=== PATIENT | male | born 1935 | race Caucasian/White ===

== ENCOUNTER 2022-01-03 09:54 | Inpatient (IN) ==
[2022-01-03 10:44] LABS: ABS Eosinophils 0.2 10^3/ul (0-0.6); ABS Lymphocytes 0.7 10^3/ul (1.0-4.8); ABS Monocytes 1.1 10^3/ul (0-0.8); ABS Neutrophils 7.5 10^3/ul (1.5-7.7); Eosinophil % 1.8 %; Hematocrit 32 % (42-52); Hemoglobin 10.8 g/dL (14.0-18.0); Lymphocyte % 7.2 %; Mean Corpuscular HGB Conc 34 g/dL (31-36); Mean Corpuscular Hemoglobin 32 pg (27-31); Mean Corpuscular Volume 95 fL (80-94); Mean Platelet Volume 7.7 fL (7.4-10.4); Platelet Count 366 10^3/uL (150-450); Red Blood Count 3.37 10^6 /uL (4.18-5.48); Red Cell Distribution Width 15 % (10-15); White Blood Count 9.5 10^3/uL (3.5-10.8)
[2022-01-03 10:48] LABS: INR 1.05 (0.89-1.11)
[2022-01-03 11:28] LABS: Albumin 3.6 g/dL (3.2-5.2); Albumin/Globulin Ratio 0.9 (1-3); Calcium 12.1 mg/dL (8.6-10.3); Globulin 3.8 g/dL (2-4); Potassium 4.8 mmol/L (3.5-5.0); Total Bilirubin 2.1 mg/dL (0.2-1.0); Total Protein 7.4 g/dL (6.4-8.9); eGFR CKD-EPI 31.5 (>60)
[2022-01-03 12:09] LABS: High Sensitivity Troponin 1 Hr 20 pg/mL (<20)
[2022-01-03] MEDS ORDERED: Iodixanol (CONTRAST) 320 MG/ML 100 ML SDV IV ONE (12:11)
[2022-01-03] MEDS ORDERED: Enoxaparin 40 MG/0.4 ML SYR SUBCUT SCH (16:00)
[2022-01-03 17:11] LABS: PSA Screening Total 0.844 ng/mL (0-4.000)
[2022-01-03 17:48] LABS: Vitamin D Total 25(OH) 106.7 ng/mL (20-50)
[2022-01-03] MEDS: NS 0.9% 1000 ml BAG 1,000 ML IV SCH (19:36)
[2022-01-03 19:45] LABS: ABS Eosinophils 0.2 10^3/ul (0-0.6); ABS Lymphocytes 0.6 10^3/ul (1.0-4.8); ABS Monocytes 1.3 10^3/ul (0-0.8); ABS Neutrophils 7.8 10^3/ul (1.5-7.7); Eosinophil % 1.9 %; Hematocrit 30 % (42-52); Lymphocyte % 5.9 %; Mean Corpuscular HGB Conc 33 g/dL (31-36); Mean Corpuscular Hemoglobin 32 pg (27-31); Mean Corpuscular Volume 95 fL (80-94); Mean Platelet Volume 7.7 fL (7.4-10.4); Platelet Count 338 10^3/uL (150-450); Red Blood Count 3.18 10^6 /uL (4.18-5.48); Red Cell Distribution Width 15 % (10-15); White Blood Count 9.8 10^3/uL (3.5-10.8)
[2022-01-03 19:56] LABS: Activated Partial Thrombo Time 34.6 seconds (26.0-38.0); INR 0.99 (0.89-1.11)
[2022-01-03 20:17] LABS: eGFR CKD-EPI 36.2 (>60)
[2022-01-03] MEDS: Heparin 5000 UNITS/ML 1 mL VIAL SUBCUT SCH (22:42)
[2022-01-04] MEDS: guaiFENesin/CODIENE 100mg/10mg 5 ML UDC PO PRN ×2 (04:40→10:26)
[2022-01-04] MEDS: Heparin 5000 UNITS/ML 1 mL VIAL SUBCUT SCH ×3 (05:30→23:04)
[2022-01-04 05:36] LABS: ABS Eosinophils 0.1 10^3/ul (0-0.6); ABS Lymphocytes 0.6 10^3/ul (1.0-4.8); ABS Monocytes 1.2 10^3/ul (0-0.8); ABS Neutrophils 7.2 10^3/ul (1.5-7.7); Eosinophil % 1.3 %; Hematocrit 31 % (42-52); Hemoglobin 10.4 g/dL (14.0-18.0); Lymphocyte % 6.5 %; Mean Corpuscular HGB Conc 33 g/dL (31-36); Mean Corpuscular Hemoglobin 32 pg (27-31); Mean Corpuscular Volume 95 fL (80-94); Mean Platelet Volume 7.8 fL (7.4-10.4); Platelet Count 347 10^3/uL (150-450); Red Blood Count 3.26 10^6 /uL (4.18-5.48); Red Cell Distribution Width 15 % (10-15); White Blood Count 9.1 10^3/uL (3.5-10.8)
[2022-01-04 05:44] LABS: Activated Partial Thrombo Time 37.1 seconds (26.0-38.0); INR 1.03 (0.89-1.11)
[2022-01-04 06:15] LABS: Albumin 3.4 g/dL (3.2-5.2); Albumin/Globulin Ratio 0.9 (1-3); Calcium 11.8 mg/dL (8.6-10.3); Globulin 3.7 g/dL (2-4); Total Bilirubin 2.4 mg/dL (0.2-1.0); Total Protein 7.1 g/dL (6.4-8.9); eGFR CKD-EPI 34.6 (>60)
[2022-01-04] MEDS: NS 0.9% 1000 ml BAG 1,000 ML IV SCH ×2 (10:28→21:46)
[2022-01-04 20:11] LABS: Direct Bilirubin 1.3 mg/dL (0.03-0.18); Total Bilirubin 2.3 mg/dL (0.2-1.0)
[2022-01-05] MEDS ORDERED: Furosemide 40 mg/4 ml IV VIAL IV ONE (00:58)
[2022-01-05 03:02] LABS: Urine Appearance Cloudy; Urine Bilirubin Negative (Negative); Urine Blood Negative (Negative); Urine Color Amber; Urine Glucose Negative (Negative); Urine Ketones Negative (Negative); Urine Nitrite Negative (Negative); Urine Protein Negative (Negative); Urine Urobilinogen Negative (Negative)
[2022-01-05] MEDS: Heparin 5000 UNITS/ML 1 mL VIAL SUBCUT SCH ×2 (05:27→15:34)
[2022-01-05] MEDS: guaiFENesin/CODIENE 100mg/10mg 5 ML UDC PO PRN (05:49)
[2022-01-05 06:07] LABS: ABS Lymphocytes 0.5 10^3/ul (1.0-4.8); ABS Monocytes 1.3 10^3/ul (0-0.8); ABS Neutrophils 7.6 10^3/ul (1.5-7.7); Eosinophil % 0.4 %; Hematocrit 31 % (42-52); Hemoglobin 10.1 g/dL (14.0-18.0); Lymphocyte % 5.3 %; Mean Corpuscular HGB Conc 33 g/dL (31-36); Mean Corpuscular Hemoglobin 32 pg (27-31); Mean Corpuscular Volume 96 fL (80-94); Mean Platelet Volume 7.9 fL (7.4-10.4); Platelet Count 342 10^3/uL (150-450); Red Blood Count 3.19 10^6 /uL (4.18-5.48); Red Cell Distribution Width 15 % (10-15); White Blood Count 9.5 10^3/uL (3.5-10.8)
[2022-01-05 06:23] LABS: Albumin 3.3 g/dL (3.2-5.2); Albumin/Globulin Ratio 0.9 (1-3); Calcium 11.5 mg/dL (8.6-10.3); Globulin 3.6 g/dL (2-4); Total Bilirubin 2.5 mg/dL (0.2-1.0); Total Protein 6.9 g/dL (6.4-8.9); eGFR CKD-EPI 32.1 (>60)
[2022-01-05 06:28] LABS: Potassium 5.4 mmol/L (3.5-5.0)
[2022-01-05] MEDS ORDERED: Iodixanol (CONTRAST) 320 MG/ML 100 ML SDV IV ONE (09:53)
[2022-01-05] MEDS ORDERED: SODIUM ZIRCONIUM CYCLOSILICATE 10 GM PACKET PO ONE (10:00)
[2022-01-05] MEDS ORDERED: Zoledronic Acid 3 MG in NS 0.9% 100 ml BAG 100 ML IVPB ONE (11:00)
[2022-01-05 11:26] LABS: PCO2 Arterial 34 mmHg (35-45); PO2 Arterial 72 mmHg (80-100)
[2022-01-05 11:40] VITALS: BP 130/71
[2022-01-05 11:48] LABS: Calcium (PTH Intact) 11.5 mg/dL (8.6-10.3)
[2022-01-05] MEDS ORDERED: Acetylcysteine INHALATION SOL 200 MG/ML NEB.SOLN 10 ML INH SCH ×2 (13:00→15:00)
[2022-01-05] MEDS ORDERED: Albuterol 2.5mg/3 ml (0.083%) NEB.SOLN INH SCH (13:00)
[2022-01-05] MEDS ORDERED: cefTRIAXone 1 gm/50 mL D5W 1 GM/50 ML BAG IV SCH (13:45)
[2022-01-05] MEDS ORDERED: ZOSYN 3.375 GM x ONE DOSE over 30 miuntes IV (15:00)
[2022-01-05] MEDS ORDERED: Zosyn per Pharmacy NOTE FOLLOW UP SCH (15:00)
[2022-01-05] MEDS ORDERED: LORazepam 2 mg VIAL 1 ml IV PUSH PRN (16:01)
[2022-01-05] MEDS ORDERED: Morphine 2 MG/ML SYRINGE IV PRN (16:01)
[2022-01-05] MEDS ORDERED: Ondansetron 4 mg VIAL 2 MG/ML 2 ml VIAL IV PRN (16:01)
[2022-01-05] MEDS ORDERED: Acetaminophen IV 1 GM/100ML 1,000 MG/100 ML BAG IV PRN (16:04)
[2022-01-05] MEDS ORDERED: Scopolamine 1 mg/72hr PATCH TRANSDERM SCH (17:00)
[2022-01-05 17:21] LABS: C Reactive Protein 144.72 mg/L (<8.01)
[2022-01-05] MEDS ORDERED: ZOSYN 3.375 GM Q8H per EXTENDED INFUSION IV SCH (18:00)
[2022-01-05] MEDS ORDERED: Morphine ORAL.SOLN 10 mg 2 mg/ml UDC 5 ml (10 mg) PO SCH (20:00)
[2022-01-05] MEDS: Morphine 2 MG/ML SYRINGE IV PRN ×2 (20:01→21:48)
[2022-01-05] MEDS: Atropine 1% (ORAL/SL) 15 ML BTL SL PRN ×2 (20:11→21:52)
[2022-01-06] MEDS: Morphine 2 MG/ML SYRINGE IV PRN ×4 (00:06→08:57)
[2022-01-06] MEDS: Atropine 1% (ORAL/SL) 15 ML BTL SL PRN ×3 (00:11→04:50)
[2022-01-06] MEDS ORDERED: LORazepam 2 mg VIAL 1 ml IV PUSH PRN (01:04)
[2022-01-06] MEDS ORDERED: Lorazepam PYXIS KEY PRN (01:04)
[2022-01-06] MEDS: Morphine ORAL CONCENTRATE 5 MG/0.25 ML ORAL.SYRIN SL PRN ×2 (09:30→12:15)
== END 2022-01-06 16:22 | disposition expired | DRG 843 ==
LOC: EDHOLD 09:54 → ED 09:54 → MED 20:04
PROVIDERS: ADMIT Internal Medicine; ATTEND Internal Medicine